=== PATIENT | female | born 1955 | race Caucasian/White ===

== ENCOUNTER 2023-08-13 21:50 | Emergency (ER) | payer MEDICARE | END 2023-08-14 00:48 | disposition home or self-care (01) | LOC: JP.ED 21:50 | DX: R06.02 Shortness of breath (principal); I10 Essential (primary) hypertension; J45.909 Unspecified asthma, uncomplicated; Z88.5 Allergy status to narcotic agent; Z88.8 Allergy status to other drugs, medicaments and biological substances; Z79.51 Long term (current) use of inhaled steroids; Z79.82 Long term (current) use of aspirin; Z79.899 Other long term (current) drug therapy | CPT/HCPCS: 99283; 99284 ==